=== PATIENT | female | born 1940 | race Caucasian/White ===

== ENCOUNTER 2019-05-28 16:02 | Inpatient (IN) | payer BC, MEDICARE ==
[~2019-05-28] VITALS: Ht 154.9 cm; Wt 48.5 kg
[2019-05-28 17:05] LABS: BASOPHILS % 1.2 % (0.0-2.0); EOSINOPHILS % 7.7 % (0.0-5.0); HEMATOCRIT. 36.9 % (36.0-48.0); HEMOGLOBIN. 12.4 g/dL (12.0-16.0); MEAN CORPUSCULAR VOLUME 88.9 fL (81.0-99.0); MONOCYTES % 9.7 % (2.0-8.0); NEUTROPHILS % 73.4 % (40.0-76.0); PLATELET 301 x1000/uL (130-400); RED BLOOD CELL COUNT 4.15 mill/uL (4.2-5.4); RED CELL DISTRIBUTION WIDTH 14.4 % (11.6-14.6)
[2019-05-28 17:11] LABS: CHLORIDE 103 mEq/L (98-107)
[2019-05-28 17:16] LABS: ETHANOL BLOOD < 10 mg/dL
[2019-05-28 17:18] LABS: LDL CHOLESTEROL 170 mg/dL (5-100)
[2019-05-28 17:24] LABS: D-DIMER 8.2 mg/L FEU (<0.50); PARTIAL THROMBOPLASTIN TIME 23.8 sec (23.4-31.0); PROTHROMBIN TIME 10.4 sec (9.6-11.0)
[2019-05-28] MEDS ORDERED: GADOBENATE DIMEGLUMINE 529 MG/ML 10ML IV ONE (19:12)
[2019-05-28] MEDS ORDERED: LEVETIRACETAM 500MG PREMIX 100 ML IV ONE (20:30)
[2019-05-28] MEDS ORDERED: DEXAMETHASONE 10 MG/ML VIAL IV ONE (20:30)
[2019-05-28] MEDS ORDERED: ASPIRIN 81MG TABLET PO ONE (21:15)
[2019-05-28] MEDS ORDERED: ACETAMINOPHEN 325MG TABLET PO PRN (22:00)
[2019-05-28] MEDS ORDERED: ONDANSETRON HCL 4MG/2ML INJ IV PRN (22:00)
[2019-05-28] MEDS ORDERED: HYDROCODONE/ACETAMINOPHEN 5/325MG TABLET PO PRN (22:00)
[2019-05-28] MEDS ORDERED: GUAIFENESIN 200MG/10ML SUGAR FREE UDC PO PRN (22:00)
[2019-05-28] MEDS ORDERED: CLONIDINE 0.1MG TABLET PO PRN (22:00)
[2019-05-28] MEDS ORDERED: DOCUSATE SODIUM 100MG CAPSULE PO PRN (22:00)
[2019-05-29] VITALS: BP 135/75
[2019-05-29] MEDS ORDERED: MELA1TAB9 PO (00:26)
[2019-05-29] MEDS ORDERED: GABA-529 PO (00:26)
[2019-05-29] MEDS ORDERED: FOLI0.4T2 PO (00:26)
[2019-05-29] MEDS ORDERED: TRAZ-251 PO (00:26)
[2019-05-29] MEDS ORDERED: ASCO100T12 PO (00:26)
[2019-05-29 00:27] VITALS: BP 135/75
[2019-05-29 00:39] LABS: CLARITY URINE CLOUDY (CLEAR); COLOR URINE YELLOW (YELLOW); KETONES URINE 1+ (NEGATIVE); LEUKOCYTE ESTERASE URINE 3+ (NEGATIVE); NITRITE URINE NEGATIVE (NEGATIVE); OCCULT BLOOD URINE NEGATIVE (NEGATIVE); PROTEIN URINE NEGATIVE (NEGATIVE); UROBILINOGEN URINE 0.2 E.U./dL (0.2-1.0)
[2019-05-29 00:52] LABS: *COCAINE SCREEN URINE NEGATIVE (NEGATIVE); METHADONE URINE SCREEN NEGATIVE (NEGATIVE)
[2019-05-29 00:53] LABS: *AMPHETAMINES SCREEN URINE NEGATIVE (NEGATIVE); *BARBITURATES SCREEN URINE NEGATIVE (NEGATIVE); *BENZODIAZEPINES SCREEN URINE NEGATIVE (NEGATIVE); CANNABINOID URINE SCREEN PRESUMTIVE POSITIVE (NEGATIVE); OPIATES URINE SCREEN NEGATIVE (NEGATIVE); PHENCYCLIDINE URINE SCREEN NEGATIVE (NEGATIVE)
[2019-05-29 04:00] VITALS: BP 110/61
[2019-05-29] MEDS ORDERED: LEVO25TA7 PO (07:27)
[2019-05-29 07:49] LABS: HEMATOCRIT. 36.6 % (36.0-48.0); HEMOGLOBIN. 12.3 g/dL (12.0-16.0); MEAN CORPUSCULAR HEMOGLOBIN 29.9 pg (28.0-32.0); MEAN CORPUSCULAR VOLUME 89.2 fL (81.0-99.0); PLATELET 284 x1000/uL (130-400); RED BLOOD CELL COUNT 4.11 mill/uL (4.2-5.4); RED CELL DISTRIBUTION WIDTH 14.3 % (11.6-14.6)
[2019-05-29 08:22] LABS: CHLORIDE 105 mEq/L (98-107)
[2019-05-29 08:29] LABS: HDL CHOLESTEROL 59 mg/dL (40-59); LDL CHOLESTEROL 169 mg/dL (5-100)
[2019-05-29] MEDS: ASPIRIN 81MG EC TABLET PO SCH (09:20)
[2019-05-29] MEDS: METOPROLOL TARTRATE 25MG TABLET PO SCH ×2 (09:20→21:49)
[2019-05-29] MEDS ORDERED: GABA-531 (10:13)
[2019-05-29] MEDS ORDERED: TRAZ-252 MT (10:23)
[2019-05-29] MEDS ORDERED: FERR-71 MT (10:23)
[2019-05-29] MEDS ORDERED: LIOT5TAB11 MT (10:23)
[2019-05-29] MEDS ORDERED: OMEP20CA14 MT (10:23)
[2019-05-29] MEDS ORDERED: GABA-531 MT (10:23)
[2019-05-29] MEDS ORDERED: LEVOFLOXACIN 500MG PREMIX 100 ML IV NR (12:30)
[2019-05-29 14:15] LABS: PLATELET ESTIMATE NORMAL
[2019-05-29 20:00] VITALS: BP 110/62
[2019-05-29] MEDS ORDERED: ATORVASTATIN CALCIUM 20MG TABLET PO SCH (21:00)
[2019-05-29] MEDS ORDERED: DIPHENHYDRAMINE 50MG/ML VIAL IV PRN (21:39)
[2019-05-29] MEDS: ATORVASTATIN CALCIUM 20MG TABLET PO SCH (21:48)
[2019-05-30] VITALS: BP 104/51
[2019-05-30] MEDS: ASPIRIN 81MG EC TABLET PO SCH (09:00)
[2019-05-30] MEDS: METOPROLOL TARTRATE 25MG TABLET PO SCH ×2 (09:01→21:05)
[2019-05-30] MEDS ORDERED: LEVOFLOXACIN 250MG PREMIX 50 ML IV SCH (11:00)
[2019-05-30 12:00] VITALS: BP 105/64
[2019-05-30 16:00] VITALS: BP 112/57
[2019-05-30 20:00] VITALS: BP 145/79
[2019-05-30] MEDS: ATORVASTATIN CALCIUM 20MG TABLET PO SCH (21:02)
[2019-05-30 21:33] LABS: VITAMIN B12 SERUM 410 pg/mL (211-911)
[2019-05-31] VITALS: BP_SYST 122
[2019-05-31 04:00] VITALS: BP 92/56
[2019-05-31 08:00] VITALS: BP 127/76
[2019-05-31] MEDS ORDERED: NITROFURANTOIN 100MG M/M CAPSULE PO SCH (09:00)
[2019-05-31] MEDS: METOPROLOL TARTRATE 25MG TABLET PO SCH (09:23)
[2019-05-31] MEDS: ASPIRIN 81MG EC TABLET PO SCH (09:23)
[2019-05-31 09:47] VITALS: BP 127/74
== END 2019-05-31 11:26 | disposition home health service (06) | DRG 73 ==
LOC: ER 16:02 → 5WST 20:38 → EDBEDREQ 20:42 → EDBEDREQSVC 20:42 → EDBEDREQTM 20:42 → ENRESERV 23:08
PROVIDERS: ADMIT Hospitalist; ATTEND Hospitalist
DX: G51.0 Bell's palsy (principal); I63.9 Cerebral infarction, unspecified; J90 Pleural effusion, not elsewhere classified; N39.0 Urinary tract infection, site not specified; C34.90 Malignant neoplasm of unspecified part of unspecified bronchus or lung; I11.9 Hypertensive heart disease without heart failure; E78.5 Hyperlipidemia, unspecified; G93.89 Other specified disorders of brain; M85.80 Other specified disorders of bone density and structure, unspecified site; R47.1 Dysarthria and anarthria; Z79.899 Other long term (current) drug therapy; Z92.21 Personal history of antineoplastic chemotherapy; Z92.3 Personal history of irradiation
CPT/HCPCS: 36415; 70553; 71045; 80053; 80061; 80305; 80320; 81003; 82607; 82962; 83721; 83880; 84443; 84484; 85025; 85379; 93005; 93880; 96365; 96366; 96375; 97161; 97535; 99285; A9577; J1100; J1200; J1953; J1956; J2405; G0480